=== PATIENT | male | born 1950 | race Caucasian/White ===

== ENCOUNTER 2019-07-26 06:56 | Outpatient (CLI) | payer OTHER | END 2019-07-26 12:57 | disposition home or self-care (01) | LOC: LAB 06:56 | DX: N39.0 Urinary tract infection, site not specified (principal) ==

== ENCOUNTER 2019-09-25 12:55 | Outpatient (CLI) | payer OTHER | END 2019-09-25 15:00 | disposition home or self-care (01) | LOC: LAB 12:55 | DX: N30.00 Acute cystitis without hematuria (principal) ==

== ENCOUNTER → 2019-10-18 12:58 | Outpatient (CLI) | payer OTHER | END | disposition home or self-care (01) | LOC: LAB 12:58 | DX: N30.00 Acute cystitis without hematuria (principal); B96.29 Other Escherichia coli [E. coli] as the cause of diseases classified elsewhere ==

== ENCOUNTER 2019-11-01 12:30 | Outpatient (CLI) | payer OTHER | END 2019-11-01 12:40 | disposition home or self-care (01) | LOC: LAB 12:30 | DX: N30.00 Acute cystitis without hematuria (principal) ==